=== PATIENT | female | born 1975 | race African-American/Black ===

== ENCOUNTER → 2018-06-04 | Day surgery (SDC) | payer OTHER ==
[2018-06-01 10:40] LABS: BASOPHILS % 0.4 % (0.0-1.0); EOSINOPHILS # (AUTO) 0.1 (0.0-0.4); EOSINOPHILS % 1.1 % (0.0-6.0); HEMATOCRIT 34.7 % (34.2-44.1); HEMOGLOBIN 11.1 g/dL (12.0-16.0); LYMPHOCYTES # (AUTO) 2.1 (1.0-3.2); LYMPHOCYTES % 25.5 % (18.0-39.1); MEAN CORPUSCULAR HEMOGLOBIN 25.6 pg (28-32); MONOCYTES # (AUTO) 0.4 (0.2-0.8); MONOCYTES % 5.3 % (4.4-11.3); NEUTROPHILS # (AUTO) 5.6 (2.1-6.9); NEUTROPHILS % 67.6 % (38.7-80.0); PLATELET COUNT 310 x10e3/uL (140-360); RED BLOOD COUNT 4.34 x10e6/uL (3.6-5.1); RED CELL DISTRIBUTION WIDTH 13.9 % (11.7-14.4)
[~2018-06-04] MED LIST: ACETAMINOPHEN 1000 MG/100 ML IV ONE; ACETAMINOPHEN/CODEINE 300MG - 30MG TAB ONE; BUPIVACAINE 0.25%/EPI 30ML SDV INJ ONE; CALCIUM CARBON500 MG PO; DEXAMETHASONE SOD PHOS INJ 4 MG/ML VIAL ONE; FENTANYL CITRATE/PF 100MCG/2 ML INJ ONE; GLYCOPYRROLATE INJ 1MG/ 5 ML SYR ONE; LIDOCAINE HCL 2% LOCAL INJ 5 ML SDV VIAL INJ ONE; MEPERIDINE HCL INJ 25 MG/ML VIAL ONE; MIDAZOLAM HCL 2 MG/2 ML VIAL ONE; MULTI-VITAMIN1 EACH PO; ONDANSETRON HCL INJ 2MG/ML 2ML 2 MG/ML VIAL ONE; PROPOFOL IV EMULSION 10 MG/ML 20 ML VIAL ONE; SEVOFLURANE INHAL SOLN 250 ML PEN BTL ONE
--- OUTSIDE RECORDS SUMMARY | 2018-06-04 05:23 | XMS REPORT | Clinical Summary ---
Author Author [employer] [facility] [employer] [facility] Address Unknown Phone Unavailable Care Team Providers Care Water Filtration Technician Name Role Phone Yonatan Whitfield DO PCP Allergies Not on File Medications Not on file Active Problems Not on file Encounters Care Team Description Date Type Specialty Srinivasan Mcduffie MD Abnormal mammogram 08/27/2017 Hospital Radiology Encounter Srinivasan Mcduffie MD Abnormal mammogram 08/27/2017 Hospital Radiology Encounter Srinivasan Mcduffie MD Abnormal mammogram (Primary Dx) 08/12/2017 Transcribe Access Orders Srinivasan Mcduffie MD Screening breast examination 08/11/2017 Hospital Radiology Encounter Srinivasan Mcduffie MD Screening breast examination (Primary Dx) 08/08/2017 Transcribe Access Orders after 06/03/2017 Social History Date Tobacco Use Types Packs/Day Years Used Never Assessed Sex Assigned at Date Recorded Not on file Industry Job Start Date Occupation Not on file Not on file Not on file Travel End Travel History Travel Start No recent travel history available. Last Filed Vital Signs Not on file Plan of Treatment Health Maintenance Due Date Last Done Comments CERVICAL CANCER SCREENING 1998 INFLUENZA VACCINE 12/17/2017 Procedures Comments Procedure Name Priority Date/Time Associated Diagnosis US BREAST COMPLETE RIGHT Routine 08/27/2017 Abnormal mammogram 4:22 PM CDT MAMMO BREAST DIAGNOSTIC Routine 08/27/2017 Abnormal mammogram TOMOSYNTHESIS RIGHT 3:20 PM CDT MAMMO BREAST SCREEN Routine 08/11/2017 Screening breast TOMOSYNTHESIS BILATERAL 7:20 AM CDT examination after 06/03/2017 Results * US Breast Complete Right (08/27/2017 4:22 PM CDT) Narrative Performed At PROCEDURE: MAMMO BREAST DIAGNOSTIC TOMOSYNTHESIS RIGHT, US BREAST COMPLETE RIGHT [facility] Right real-time whole breast sonography included all four quadrants and the retroareolar region under close supervision by the radiologist. Computer aided detection with tomosynthesis was utilized for the interpretation. HISTORY:42-year-old female recalled for screening mammography for a focal asymmetry with questionable distortion at the right medial inferior breast at middle depth. The patient is scheduled to have a bilateral mastopexy performed in the next month. COMPARISON: 08/11/2017-04/10/2016 DENSITY: There are scattered areas of fibroglandular density. FINDINGS: MAMMOGRAM: The focal asymmetry associated with possible architectural distortion in the right medial inferior breast at middle depth is not reproduced on today's right ML or right CC full field 2-D and 3-D views. Additionally, right ML and right CC spot compression magnification views in the expected location of this focal asymmetry demonstrates normal fibroglandular tissue. There are a few scattered benign-appearing coarse calcifications in the right breast. ULTRASOUND: Right whole breast sonography demonstrates no suspicious sonographic abnormality. IMPRESSION:No mammographic or sonographic evidence of malignancy in the right breast. RECOMMENDATION: Correlation with physical exam and annual mammography. Results and recommendations were discussed with the patient at the time of the ultrasound exam. BI-RADS 2: BENIGN This facility is accredited by [employer] for Mammography. A negative x-ray report should not delay biopsy if a dominant or clinically suspicious mass is present.Not all cancers are identified by x-ray. [id number] Performing Organization Address City/State/Zipcode Phone Number [facility] [phone] [place] [address] * Mammo Breast Diagnostic Tomosynthesis Right (08/27/2017 3:20 PM CDT) Narrative Performed At PROCEDURE: MAMMO BREAST DIAGNOSTIC TOMOSYNTHESIS RIGHT, US BREAST COMPLETE RIGHT [facility] Right real-time whole breast sonography included all four quadrants and the retroareolar region under close supervision by the radiologist. Computer aided detection with tomosynthesis was utilized for the interpretation. HISTORY:42-year-old female recalled for screening mammography for a focal asymmetry with questionable distortion at the right medial inferior breast at middle depth. The patient is scheduled to have a bilateral mastopexy performed in the next month. COMPARISON: 08/11/2017-04/10/2016 DENSITY: There are scattered areas of fibroglandular density. FINDINGS: MAMMOGRAM: The focal asymmetry associated with possible architectural distortion in the right medial inferior breast at middle depth is not reproduced on today's right ML or right CC full field 2-D and 3-D views. Additionally, right ML and right CC spot compression magnification views in the expected location of this focal asymmetry demonstrates normal fibroglandular tissue. There are a few scattered benign-appearing coarse calcifications in the right breast. ULTRASOUND: Right whole breast sonography demonstrates no suspicious sonographic abnormality. IMPRESSION:No mammographic or sonographic evidence of malignancy in the right breast. RECOMMENDATION: Correlation with physical exam and annual mammography. Results and recommendations were discussed with the patient at the time of the ultrasound exam. BI-RADS 2: BENIGN This facility is accredited by [employer] for Mammography. A negative x-ray report should not delay biopsy if a dominant or clinically suspicious mass is present.Not all cancers are identified by x-ray. [id number] Performing Organization Address [facility] Phone Number [facility] [address] [place] [address] * Mammo Breast Screen Tomosynthesis Bilateral (08/11/2017 7:20 AM CDT) Narrative Performed At PROCEDURE: MAMMO BREAST SCREEN TOMOSYNTHESIS BILATERAL [facility] Computer aided detection was utilized for the interpretation of the digital bilateral screening mammography with tomosynthesis. COMPARISON: 04/10/2016 CLINICAL HISTORY: Screening mammogram.The patient has no current breast complaints. The patient reports a family history of her mother diagnosed with breast cancer at age 72. DENSITY: There are scattered areas of fibroglandular density. There are a few scattered benign-appearing coarse calcifications in the right breast. There is a focal asymmetry with questionable distortion at the right medial inferior breast at middle depth. No significant masses, calcifications, or other findings are seen in the left breast. IMPRESSION: 1. Right breast focal asymmetry with questionable distortion. 2. No mammographic evidence of malignancy in the left breast. RECOMMENDATION: Right diagnostic mammogram (including tomosynthesis views) with ultrasound as needed. BI-RADS 0: INCOMPLETE - Need Additional Imaging Evaluation This facility is accredited by the [employer] for Mammography. A negative x-ray report should not delay biopsy if a dominant or clinically suspicious mass is present.Not all cancers are identified by x-ray. [id number] Performing Organization Address City/State/Zipcode Phone Number [facility] [address] [place] [address] after 06/03/2017 Insurance Payer Benefit Subscriber ID Type Phone Address Plan / Group [facility] UMR xxxxxxxx PPO [facility] THCARE CHOICE NT[facility] Advance Directives Patient has advance care planning documents on file. For more information, angella hill contact: Byron Henao [address] [place] [address]
--- OUTSIDE RECORDS SUMMARY | 2018-06-04 05:23 | XMS REPORT | Continuity of Care Document ---
Author Author [facility] Organization Interface Address Unknown Phone Unavailable Problems Problem Status Onset Date Classification Date Reported Comments Source 98181- MORBID OBESITY Active 12/07/2014 [facility] 05872,REFLUX Active 09/29/2014 [facility] Morbid obesity Active Problem 01/02/2015 [facility] ADMINISTRTVE ENCOUNT NOS Active [facility] Medications Medication Details Route Status Patient Instructions Ordering Provider Order Date Source Lactated Ringers IV 1,000 mL 1,000 mL, Rate: 80 ml/hr, Infuse over: 12.5 hr, Route: IV, Dosing Weight 114.091 kg, Total Volume: 1,000, Priority: Routine, Start date: 12/29/14 11:00:00, Duration: 30 day, Stop date: 01/28/15 10:59:00 No Longer Active 12/29/2014 [facility] tramadol hydrochloride 50 MG Oral Tablet 50 mg=1 tab, PO, Q4H, PRN Pain, X 5 day, # 30 tab, 0 Refill(s) Active 12/29/2014 [facility] tramadol hydrochloride 50 MG Oral Tablet 50 mg, 1 tab, Route: PO, Drug form: TAB, Q4H, Dosing Weight 108.636, kg, PRN Pain Score 1-3, Start date: 12/29/14 8:20:00, Duration: 30 day, Stop date: 01/28/15 8:19:00Notes: Not to exceed 400mg/day. (Same As: Ultram) No Longer Active 12/29/2014 [facility] Enoxaparin 30 mg, 0.3 mL, Route: SUB-Q, Drug form: INJ, [id number], Dosing Weight 114.091, kg, Start date: 12/29/14 5:00:00, Duration: 30 day, Stop date: 01/27/15 17:00:00Notes: (Same as: Lovenox) No Longer Active 12/29/2014 [facility] Ketorolac 30 mg, 1 mL, Route: IVP, Drug form: INJ, Q6H, Dosing Weight 114.091, kg, Start date: 12/28/14 18:00:00, Duration: 6 doses or times, Stop date: 12/30/14 0:00:00Notes: (Same as:Toradol) IV bolus must be given >15 seconds. Give IM administration slowly and deeply into the muscle. Not for use > 4 days MEDICATION WASTE Product Size: 30 mg Product Wasted: ___ mg Active 12/28/2014 [facility] Hydromorphone 15 mg, 30 mL, Route: IV, Initial Loading Dose: 0.4mg, TAILMAN Dose: 0.2 mg, TAILMAN Lockout: 10 minutes, Continuous Basal Rate: 0 mg, 4 Hour Limit (In MG): 6, Drug Form: INJ, Continuous, Start date: 12/28/14 17 :30:00, Duration: 30 day, Stop date: 01/27/15 17:...Notes: (Same as: Dilaudid) conc=0.5 mg/ml Hydromorphone TAILMAN Dose: ;Delay: ;Basal: No Longer Active 12/28/2014 [facility] Hydromorphone 0.2 mg, 0.1 mL, Route: IVP, Drug form: INJ, Q5Min, Dosing Weight 114.091, kg, PRN Pain Score 4-6, Start date: 12/28/14 17:23:00, Duration: 10 doses or times, Stop date: Limited # of timesNotes: (Same as: Dilaudid) Inactive 12/28/2014 [facility] Flumazenil 0.2 mg, 2 mL, Route: IVP, Drug form: INJ, PRN, Dosing Weight 114.091, kg, PRN Benzodiazepine Reversal, Initial dose, Start date: 12/28/14 17:23:00, Duration: 30 day, Stop date: 01/27/15 17:22:00Notes: (Same as: Romazicon) Inactive 12/28/2014 [facility] Promethazine 6.25 mg, 0.25 mL, Route: IVPB, ONCE, Dosing Weight 114.091, kg, PRN Nausea & Vomiting, Start date: 12/28/14 17:23:00Notes: Do not give IV push. (Same as: Phenergan) Inactive 12/28/2014 [facility] Diphenhydramine 12.5 mg, 0.25 mL, Route: IVP, Drug form: INJ, Q6H, Dosing Weight 114.091, kg, PRN Itching, Start date: 12/28/14 17:23:00, Duration: 30 day, Stop date: 01/27/15 17:22:00Notes: (Same as: Benadryl) Inactive 12/28/2014 [facility] Ondansetron 4 mg, 2 mL, Route: IVP, Drug form: INJ, ONCE, Dosing Weight 114.091, kg, PRN Nausea & Vomiting, Start date: 12/28/14 17:23:00Notes: (Same as: Zofran) MEDICATION WASTE Product Size: 4 mg Product Wasted: ___ mg Inactive 12/28/2014 [facility] Naloxone 0.04 mg, 0.1 mL, Route: IVP, Drug form: INJ, Q2MIN, Dosing Weight 114.091, kg, PRN Narcotic Reversal, Start date: 12/28/14 17:23:00, Duration: 8 doses or times, Stop date: Limited # of timesNotes: Same as Narcan Inactive 12/28/2014 [facility] Ephedrine 5 mg, 1 mL, Route: IVP, Drug form: INJ, Q5Min, Dosing Weight 114.091, kg, PRN Low Blood Pressure, Start date: 12/28/14 17:23:00, Duration: 30 day, Stop date: 01/27/15 17:22:00Notes: final concentrati on 5 mg/mL Inactive 12/28/2014 [facility] Labetalol 10 mg, 2 mL, Route: IVP, Drug form: INJ, Q5Min, Dosing Weight 114.091, kg, PRN Elevated BP, Start date: 12/28/14 17:23:00, Duration: 5 doses or times, Stop date: Limited # of times Inactive 12/28/2014 [facility] Metoprolol 1 mg, 1 mL, Route: IVP, Drug form: INJ, Q5Min, Dosing Weight 114.091, kg, PRN Other -See Comment, Start date: 12/28/14 17:23:00, Duration: 5 doses or times, Stop date: Limited # of timesNotes: (Same as: Lopressor) Push over 2 minutes Inactive 12/28/2014 [facility] esmolol 10 mg, 1 mL, Route: IVP, Drug form: INJ, Q5Min, Dosing Weight 114.091, kg, PRN Other -See Comment, Start date: 12/28/14 17:23:00, Duration: 5 doses or times, Stop date: Limited # of timesNotes: (Same as: Brevibloc) Inactive 12/28/2014 [facility] Hydralazine 10 mg, 0.5 mL, Route: IVP, Drug form: INJ, Q20Min, Dosing Weight 114.091, kg, PRN Elevated BP, Start date: 12/28/14 17:23:00, Duration: 2 doses or times, Stop date: Limited # of times Inactive 12/28/2014 [facility] Calcium Chloride 0.0014 MEQ/ML / Potassium Chloride 0.004 MEQ/ML / Sodium Chloride 0.103 MEQ/ML / Sodium Lactate 0.028 MEQ/ML Injectable Solution 1,000 mL, Rate: 125 ml/hr, Infuse over: 8 hr, Route: IV, Dosing Weight 114.091 kg, Total Volume: 1,000, Start date: 12/28/14 17:23:00, Duration: 30 day, Stop date: 01/27/15 17:22:00 Inactive 12/28/2014 [facility] Sodium Chloride 0.9% IV 25 mL, Route: IV, Start date: 12/28/14 17:08:00, Duration: 30 day, Stop date: 01/27/15 17:07:00, PRN Line Flush No Longer Active 12/28/2014 [facility] BD Normal Saline Flush 10 mL, Route: IV, Drug Form: INJ, PRN, PRN Line Flush, Start date: 12/28/14 17:07:00, Duration: 30 day, Stop date: 01/27/15 17:06:00Notes: (Same as: BD Posiflush) No Longer Active 12/28/2014 [facility] Naloxone 0.04 mg, 0.1 mL, Route: IVP, Drug form: INJ, Q2MIN, Dosing Weight 114.091, kg, PRN Narcotic Reversal, Start date: 12/28/14 17:01:00, Duration: 30 day, Stop date: 01/27/15 17:00:00Notes: Same as Narcan No Longer Active 12/28/2014 [facility] Lactated Ringers IV 1,000 mL 1,000 mL, Rate: 80 ml/hr, Infuse over: 12.5 hr, Route: IV, Dosing Weight 114.091 kg, Total Volume: 1,000, Priority: STAT, Start date: 12/28/14 16:58:00, Duration: 30 day, Stop date: 01/27/15 16:57:00 Inactive 12/28/2014 [facility] Promethazine 12.5 mg, 50 mL, Route: IVPB, Drug form: SOLN, Q4H, Dosing Weight 114.091, kg, PRN Nausea & Vomiting, Start date: 12/28/14 16:58:00, Duration: 30 day, Stop date: 01/27/15 16:57:00 No Longer Active 12/28/2014 [facility] Ondansetron 4 mg, 2 mL, Route: IVP, Drug form: INJ, Q12H, Dosing Weight 114.091, kg, PRN Nausea & Vomiting, Start date: 12/28/14 16:58:00, Duration: 30 day, Stop date: 01/27/15 16:57:00Notes: (Same as: Zofran) MEDICATION WASTE Product Size: 4 mg Product Wasted: ___ mg No Longer Active 12/28/2014 [facility] Calcium Chloride 0.0014 MEQ/ML / Potassium Chloride 0.004 MEQ/ML / Sodium Chloride 0.103 MEQ/ML / Sodium Lactate 0.028 MEQ/ML Injectable Solution 1,000 mL, Rate: 125 ml/hr, Infuse over: 8 hr, Route: IV, Dosing Weight 114.091 kg, Total Volume: 1,000, Start date: 12/28/14 16:58:00, Stop date: 12/29/14 10:59:00 No Longer Active 12/28/2014 [facility] ceFAZolin 2 gm, 100 mL, Route: IVPB, Drug form: INJ, ONCALL, Start date: 12/28/14 7:00:00, Duration: 14 hr, Stop date: 12/28/14 20:59:00Notes: Same as: Ancef Inactive 12/28/2014 [facility] Flumazenil 0.2 mg, 2 mL, Route: IVP, Drug form: INJ, PRN, Dosing Weight 114.091, kg, PRN Benzodiazepine Reversal, Initial dose, Start date: 11/04/14 7:18:00, Duration: 30 day, Stop date: 12/04/14 7:17:00Notes: (Same as: Romazicon) Inactive 11/04/2014 [facility] Naloxone 0.04 mg, 0.1 mL, Route: IVP, Drug form: INJ, Q2MIN, Dosing Weight 114.091, kg, PRN Narcotic Reversal, Start date: 11/04/14 7:18:00, Duration: 8 doses or times, Stop date: Limited # of timesNotes: Same as Narcan Inactive 11/04/2014 [facility] Ondansetron 4 mg, 2 mL, Route: IVP, Drug form: INJ, ONCE, Dosing Weight 114.091, kg, PRN Nausea & Vomiting, Start date: 11/04/14 7:18:00Notes: (Same as: Zofran) MEDICATION WASTE Product Size: 4 mg Product Wasted: ___ mg Inactive 11/04/2014 [facility] Allergies, Adverse Reactions, Alerts Substance Category Reaction Severity Reaction type Status Date Reported Comments Source NKFA Assertion Drug allergy Active [facility] Immunizations Immunization Date Given Site Status Last Updated Comments Source Results Order Name Results Value Reference Range Date Interpretation Comments Source CHEM PANEL BUN 7 mg/dL 7 - 22 12/30/2014 [facility] CHEM PANEL CO2 25 meq/L 24 - 32 12/30/2014 [facility] CHEM PANEL AGAP 15.1 meq/L 10.0 - 20.0 12/30/2014 [facility] CHEM PANEL Glucose Lvl 69 mg/dL 70 - 99 12/30/2014 [facility] CHEM PANEL eGFR 109 mL/min/1.73m2 12/30/2014 Result Comment: The eGFR is calculated using the CKD-EPI formula. In most young, healthy individuals the eGFR will be >90 mL/min/1.73m2. The eGFR declines with age. An eGFR of 60-89 may be normal in some populations, particularly the elderly, for whom the CKD-EPI formula has not been extensively validated. Use of the eGFR is not recommended in the following populations: Individuals with unstable creatinine concentrations, including patients and those with serious co-morbid conditions. Patients with extremes in muscle mass or diet. The data above are obtained from the National Kidney Disease Education Program (NKDEP) which additionally recommends that when the eGFR is used in patients with extremes of body mass index for purposes of drug dosing, the eGFR should be multiplied by the estimated BMI. [facility] CHEM PANEL Calcium Lvl 8.3 mg/dL 8.5 - 10.5 12/30/2014 [facility] CHEM PANEL Chloride Lvl 106 meq/L 95 - 109 12/30/2014 [facility] CHEM PANEL Sodium Lvl 142 meq/L 135 - 145 12/30/2014 [facility] CHEM PANEL Potassium Lvl 4.1 meq/L 3.5 - 5.1 12/30/2014 [facility] CHEM PANEL Creatinine Lvl 0.8 mg/dL 0.5 - 1.4 12/30/2014 [facility] HEMATOLOGY Hct 37.2 % 36.0 - 48.0 12/30/2014 [facility] HEMATOLOGY Hgb 12.2 g/dL 12.0 - 16.0 12/30/2014 [facility] HEMATOLOGY MCH 28.6 pg 27.0 - 31.0 12/30/2014 [facility] HEMATOLOGY MCV 87.3 fL 80.0 - 98.0 12/30/2014 [facility] HEMATOLOGY RBC 4.25 M/CMM 4.20 - 5.40 12/30/2014 [facility] HEMATOLOGY RDW 13.9 % 11.5 - 14.5 12/30/2014 [facility] HEMATOLOGY MCHC 32.8 g/dL 32.0 - 36.0 12/30/2014 [facility] HEMATOLOGY MPV 9.7 fL 7.4 - 10.4 12/30/2014 [facility] HEMATOLOGY Platelet 244 K/CMM 133 - 450 12/30/2014 [facility] WBC 9.6 K/CMM 3.7 - 10.4 12/30/2014 [facility] HEMATOLOGY INR 1.11 0.85 - 1.17 12/30/2014 [facility] HEMATOLOGY PTT 30.1 s 22.9 - 35.8 12/30/2014 [facility] HEMATOLOGY PT 14.4 s 12.0 - 14.7 12/30/2014 [facility] HEMATOLOGY Basophils 0.3 % 0.0 - 1.0 12/30/2014 [facility] HEMATOLOGY Segs-Bands # 6.2 K/CMM 1.5 - 8.1 12/30/2014 [facility] HEMATOLOGY Plt Morph Normal (12/30/14 2:55 AM) 12/30/2014 [facility] HEMATOLOGY Segs 64.2 % 45.0 - 75.0 12/30/2014 [facility] HEMATOLOGY Lymphocytes 30.0 % 20.0 - 40.0 12/30/2014 [facility] HEMATOLOGY Monocytes 4.6 % 2.0 - 12.0 12/30/2014 [facility] HEMATOLOGY Lymphocytes # 2.9 K/CMM 1.0 - 5.5 12/30/2014 [facility] HEMATOLOGY Monocytes # 0.4 K/CMM 0.0 - 0.8 12/30/2014 [facility] HEMATOLOGY Eosinophils # 0.1 K/CMM 0.0 - 0.5 12/30/2014 [facility] HEMATOLOGY Eosinophils 0.9 % 0.0 - 4.0 12/30/2014 [facility] HEMATOLOGY RBC Morph Normal (12/30/14 2:55 AM) 12/30/2014 [facility] ELECTROLYTES AGAP 16.4 meq/L 10.0 - 20.0 12/29/2014 [facility] ELECTROLYTES Glucose Lvl 102 mg/dL 70 - 99 12/29/2014 [facility] ELECTROLYTES BUN 8 mg/dL 7 - 22 12/29/2014 [facility] ELECTROLYTES CO2 23 meq/L 24 - 32 12/29/2014 [facility] ELECTROLYTES eGFR 109 mL/min/1.73m2 12/29/2014 Result Comment: The eGFR is calculated using the CKD-EPI formula. In most young, healthy individuals the eGFR will be >90 mL/min/1.73m2. The eGFR declines with age. An eGFR of 60-89 may be normal in some populations, particularly the elderly, for whom the CKD-EPI formula has not been extensively validated. Use of the eGFR is not recommended in the following populations: Individuals with unstable creatinine concentrations, including patients and those with serious co-morbid conditions. Patients with extremes in muscle mass or diet. The data above are obtained from the National Kidney Disease Education Program (NKDEP) which additionally recommends that when the eGFR is used in patients with extremes of body mass index for purposes of drug dosing, the eGFR should be multiplied by the estimated BMI. [facility] ELECTROLYTES Sodium Lvl 141 meq/L 135 - 145 12/29/2014 [facility] ELECTROLYTES Chloride Lvl 107 meq/L 95 - 109 12/29/2014 [facility] ELECTROLYTES Calcium Lvl 8.7 mg/dL 8.5 - 10.5 12/29/2014 [facility] ELECTROLYTES Potassium Lvl 5.4 meq/L 3.5 - 5.1 12/29/2014 [facility] ELECTROLYTES Creatinine Lvl 0.8 mg/dL 0.5 - 1.4 12/29/2014 [facility] HEMATOLOGY Basophils # 0.0 K/CMM 0.0 - 0.2 12/29/2014 [facility] HEMATOLOGY Eosinophils # 0.0 K/CMM 0.0 - 0.5 12/29/2014 [facility] HEMATOLOGY Macrocyte 1+ *ABN* (12/29/14 3:15 AM) None Seen 12/29/2014 [facility] HEMATOLOGY Large Plt Moderate *ABN* (12/29/14 3:15 AM) None Seen 12/29/2014 [facility] HEMATOLOGY Segs 87.8 % 45.0 - 75.0 12/29/2014 [facility] HEMATOLOGY Lymphocytes 8.9 % 20.0 - 40.0 12/29/2014 [facility] HEMATOLOGY Monocytes 3.3 % 2.0 - 12.0 12/29/2014 [facility] HEMATOLOGY Basophils 0.0 % 0.0 - 1.0 12/29/2014 [facility] Segs-Bands # 11.1 K/CMM 1.5 - 8.1 12/29/2014 [facility] HEMATOLOGY Eosinophils 0.0 % 0.0 - 4.0 12/29/2014 [facility] HEMATOLOGY Lymphocytes # 1.1 K/CMM 1.0 - 5.5 12/29/2014 [facility] HEMATOLOGY Monocytes # 0.4 K/CMM 0.0 - 0.8 12/29/2014 [facility] HEMATOLOGY RDW 13.8 % 11.5 - 14.5 12/29/2014 [facility] HEMATOLOGY Platelet 268 K/CMM 133 - 450 12/29/2014 [facility] HEMATOLOGY MPV 9.8 fL 7.4 - 10.4 12/29/2014 [facility] HEMATOLOGY RBC 4.61 M/CMM 4.20 - 5.40 12/29/2014 [facility] HEMATOLOGY WBC 12.6 K/CMM 3.7 - 10.4 12/29/2014 [facility] HEMATOLOGY Hgb 13.1 g/dL 12.0 - 16.0 12/29/2014 [facility] MCH 28.4 pg 27.0 - 31.0 12/29/2014 [facility] MCHC 32.4 g/dL 32.0 - 36.0 12/29/2014 [facility] HEMATOLOGY MCV 87.6 fL 80.0 - 98.0 12/29/2014 [facility] Hct 40.4 % 36.0 - 48.0 12/29/2014 [facility] PT 14.1 s 12.0 - 14.7 12/29/2014 [facility] HEMATOLOGY PTT 29.2 s 22.9 - 35.8 12/29/2014 [facility] HEMATOLOGY INR 1.08 0.85 - 1.17 12/29/2014 [facility] BLOOD BANK RESULTS Antibody Scrn Negative (12/28/14 1:19 PM) 12/28/2014 [facility] BLOOD BANK RESULTS ABO/Rh B POS 12/28/2014 [facility] CHEM PANEL Vitamin D, 25-OH, Total 23 ng/mL 30 - 100 12/14/2014 [facility] ELECTROLYTES AGAP 11.8 meq/L 10.0 - 20.0 12/14/2014 [facility] ELECTROLYTES B/C Ratio 11 6 - 25 12/14/2014 [facility] ELECTROLYTES A/G Ratio 0.8 0.7 - 1.6 12/14/2014 [facility] ELECTROLYTES Globulin 4.2 g/dL 2.0 - 4.0 12/14/2014 [facility] ELECTROLYTES eGFR 128 mL/min/1.73m2 12/14/2014 Result Comment: The eGFR is calculated using the CKD-EPI formula. In most young, healthy individuals the eGFR will be >90 mL/min/1.73m2. The eGFR declines with age. An eGFR of 60-89 may be normal in some populations, particularly the elderly, for whom the CKD-EPI formula has not been extensively validated. Use of the eGFR is not recommended in the following populations: Individuals with unstable creatinine concentrations, including patients and those with serious co-morbid conditions. Patients with extremes in muscle mass or diet. The data above are obtained from the National Kidney Disease Education Program (NKDEP) which additionally recommends that when the eGFR is used in patients with extremes of body mass index for purposes of drug dosing, the eGFR should be multiplied by the estimated BMI. [facility] ELECTROLYTES Chloride Lvl 107 meq/L 95 - 109 12/14/2014 [facility] ELECTROLYTES Potassium Lvl 3.8 meq/L 3.5 - 5.1 12/14/2014 [facility] ELECTROLYTES Calcium Lvl 8.7 mg/dL 8.5 - 10.5 12/14/2014 [facility] ELECTROLYTES Sodium Lvl 140 meq/L 135 - 145 12/14/2014 [facility] ELECTROLYTES Creatinine Lvl 0.7 mg/dL 0.5 - 1.4 12/14/2014 [facility] ELECTROLYTES Glucose Lvl 82 mg/dL 70 - 99 12/14/2014 [facility] ELECTROLYTES CO2 25 meq/L 24 - 32 12/14/2014 [facility] ELECTROLYTES BUN 8 mg/dL 7 - 22 12/14/2014 [facility] ELECTROLYTES Albumin Lvl 3.3 g/dL 3.5 - 5.0 12/14/2014 [facility] ELECTROLYTES Bili Total 0.3 mg/dL 0.2 - 1.3 12/14/2014 [facility] ELECTROLYTES Alk Phos 95 unit/L 39 - 136 12/14/2014 [facility] ELECTROLYTES Total Protein 7.5 g/dL 6.4 - 8.4 12/14/2014 [facility] ELECTROLYTES AST 19 unit/L 0 - 37 12/14/2014 [facility] ELECTROLYTES ALT 28 unit/L 0 - 65 12/14/2014 [facility] HEMATOLOGY MCH 28.4 pg 27.0 - 31.0 12/14/2014 [facility] HEMATOLOGY MCHC 32.7 g/dL 32.0 - 36.0 12/14/2014 [facility] HEMATOLOGY Hgb 13.2 g/dL 12.0 - 16.0 12/14/2014 [facility] HEMATOLOGY MCV 86.7 fL 80.0 - 98.0 12/14/2014 [facility] HEMATOLOGY Hct 40.4 % 36.0 - 48.0 12/14/2014 [facility] WBC 10.6 K/CMM 3.7 - 10.4 12/14/2014 [facility] HEMATOLOGY MPV 8.8 fL 7.4 - 10.4 12/14/2014 [facility] HEMATOLOGY RDW 14.0 % 11.5 - 14.5 12/14/2014 [facility] HEMATOLOGY Platelet 338 K/CMM 133 - 450 12/14/2014 [facility] HEMATOLOGY RBC 4.66 M/CMM 4.20 - 5.40 12/14/2014 [facility] HEMATOLOGY PT 12.7 s 12.0 - 14.7 12/14/2014 [facility] HEMATOLOGY PTT 29.8 s 22.9 - 35.8 12/14/2014 [facility] HEMATOLOGY INR 0.95 0.85 - 1.17 12/14/2014 [facility] HEMATOLOGY Basophils 0.3 % 0.0 - 1.0 12/14/2014 [facility] HEMATOLOGY Lymphocytes 25.9 % 20.0 - 40.0 12/14/2014 [facility] HEMATOLOGY Monocytes 5.2 % 2.0 - 12.0 12/14/2014 [facility] HEMATOLOGY Eosinophils 2.0 % 0.0 - 4.0 12/14/2014 [facility] HEMATOLOGY Segs 66.6 % 45.0 - 75.0 12/14/2014 [facility] HEMATOLOGY Eosinophils # 0.2 K/CMM 0.0 - 0.5 12/14/2014 [facility] HEMATOLOGY Segs-Bands # 7.1 K/CMM 1.5 - 8.1 12/14/2014 [facility] HEMATOLOGY Lymphocytes # 2.7 K/CMM 1.0 - 5.5 12/14/2014 [facility] HEMATOLOGY Monocytes # 0.6 K/CMM 0.0 - 0.8 12/14/2014 [facility] PARATHYROID PROFILE PTH Intact 98.9 pg/mL 11.1 - 79.5 12/14/2014 [facility] SPECIAL CHEMISTRY Hgb A1C 5.4 % <=5.6 % 12/14/2014 [facility] URINE AND STOOL UA Urobilinogen <=1.0 mg/dL 0.1 - 1.0 12/14/2014 [facility] URINE AND STOOL Micro? Not Indicated *NA* (12/14/14 1:03 PM) 12/14/2014 [facility] URINE AND STOOL UA Ketones Negative mg/dL Negative mg/dL 12/14/2014 [facility] URINE AND STOOL UA Bili Negative *NA* (12/14/14 1:03 PM) Negative 12/14/2014 [facility] URINE AND STOOL UA Blood Negative (12/14/14 1:03 PM) Negative 12/14/2014 [facility] URINE AND STOOL UA Nitrite Negative (12/14/14 1:03 PM) Negative 12/14/2014 [facility] URINE AND STOOL UA Glucose Negative mg/dL Negative mg/dL 12/14/2014 [facility] URINE AND STOOL UA pH 5.5 5.0 - 8.0 12/14/2014 [facility] URINE AND STOOL UA Protein Negative mg/dL Negative mg/dL 12/14/2014 [facility] URINE AND STOOL UA Color Yellow *NA* (12/14/14 1:03 PM) Yellow 12/14/2014 [facility] URINE AND STOOL UA Spec Grav 1.017 <=1.030 12/14/2014 [facility] URINE AND STOOL UA Turbidity Clear (12/14/14 1:03 PM) Clear 12/14/2014 [facility] URINE AND STOOL UA Bacteria Occasional /HPF None Seen /HPF 12/14/2014 [facility] URINE AND STOOL UA RBC 1 /HPF 0 - 2 12/14/2014 [facility] URINE AND STOOL UA WBC 4 /HPF 0 - 5 12/14/2014 [facility] URINE AND STOOL UA Leuk Est Negative (12/14/14 1:03 PM) Negative 12/14/2014 [facility] URINE AND STOOL UA Sq Epi Many /LPF Few /LPF 12/14/2014 [facility] Chest 2 views DX Chest 2 views DX Exam: Two-view chest x-ray Reason for Exam: Coughing Comparison Exam: None Discussion: Cardiomediastinal silhouette is within normal limits. Both hemidiaphragms well visualized. No pulmonary edema or pleural effusions. No focal lung consolidations. Trachea is midline. No acute bony abnormalities. Impression: 1. No acute cardiopulmonary abnormalities. 12/14/2014 - - Read by: Ruben Childs MD Dictated Date/time: 12/14/14 16:00 Electronically Signed by: Ruben Childs MD 12/14/14 16:00 FINAL REPORT [facility] Vital Signs Vital Sign Value Date Comments Source Respitory Rate 20 12/30/2014 [facility] Systolic (mm Hg) 113 12/30/2014 [facility] Diastolic (mm Hg) 77 12/30/2014 [facility] Temperature Oral (F) 98.5 F 12/30/2014 [facility] Heart Rate 78 12/30/2014 [facility] Respitory Rate 18 12/30/2014 [facility] Systolic (mm Hg) 109 12/30/2014 [facility] Diastolic (mm Hg) 71 12/30/2014 [facility] Heart Rate 62 12/30/2014 [facility] Respitory Rate 18 12/30/2014 [facility] Temperature Oral (F) 98.0 F 12/30/2014 [facility] Heart Rate 76 12/29/2014 [facility] Temperature Oral (F) 98.2 F 12/29/2014 [facility] Systolic (mm Hg) 102 12/29/2014 [facility] Diastolic (mm Hg) 61 12/29/2014 [facility] Height 154.94 cm 12/29/2014 [facility] Weight 108.636 12/29/2014 [facility] BMI Calculated 45.25 12/29/2014 [facility] Weight 114.091 12/14/2014 [facility] BMI Calculated 47.53 12/14/2014 [facility] Height 154.94 cm 12/14/2014 [facility] Weight 114.091 11/04/2014 [facility] BMI Calculated 47.53 11/04/2014 [facility] Height 154.94 cm 11/04/2014 [facility] Encounters Location Location Details Encounter Type Encounter Number Reason For Visit Attending Provider ADM Date DC Date Status Source [facility] Bedded Outpatient [id number] Jonathon Luz 11/04/2014 11/04/2014 [facility] Inpatient [id number] Jonathon Luz 12/28/2014 12/30/2014 [facility] Procedures Procedure Code Date Perfomer Comments Source Gastric bypass operation [id number] 12/28/2014 [facility] Ablation<sup>1</sup> [id number] endometrial [facility] TL - Tubal ligation [id number] [facility]
--- OUTSIDE RECORDS SUMMARY | 2018-06-04 05:24 | XMS REPORT | Summary of Care ---
Author Author [facility] Organization [facility] Address Unknown Phone Unavailable Encounter [facility] Rupinder(JHOAN) [id number] Date(s): 12/28/14 - 12/30/14 [id number] [place] [address]- Discharge Disposition: Home Attending Physician: Jonathon Luz MD Admitting Physician: Jonathon Luz MD Referring Physician: Jonathon Luz MD Vital Signs 1 2 3 Most recent to oldest [Reference Range]: 154.94 cm (12/28/14 9:25 PM) 154.94 cm (12/14/14 12:32 PM) Height 1 2 3 Most recent to oldest [Reference Range]: 98.5 DegF (12/30/14 8:00 AM) 98.0 DegF (12/30/14 4:00 AM) 98.2 DegF (12/29/14 12:00 AM) Temperature Oral [96.4-99.1 DegF] 1 2 3 Most recent to oldest [Reference Range]: 113/77 mmHg (12/30/14 8:00 AM) 109/71 mmHg (12/30/14 4:00 AM) 102/61 mmHg (12/29/14 12:00 AM) Blood Pressure [90-140/60-90 mmHg] 1 2 3 Most recent to oldest [Reference Range]: 20 BRMIN (12/30/14 8:45 AM) 18 BRMIN (12/30/14 8:00 AM) 18 BRMIN (12/30/14 4:00 AM) Respiratory Rate [14-20 BRMIN] 1 2 3 Most recent to oldest [Reference Range]: 78 bpm (12/30/14 8:00 AM) 62 bpm (12/30/14 4:00 AM) 76 bpm (12/29/14 12:00 AM) Peripheral Pulse Rate [60-100 bpm] 1 2 3 Most recent to oldest [Reference Range]: 108.636 kg (12/28/14 9:25 PM) 114.091 kg (12/14/14 12:32 PM) Weight 1 2 3 Most recent to oldest [Reference Range]: 45.25 m2 (12/28/14 9:25 PM) 47.53 m2 (12/14/14 12:32 PM) Body Mass Index Problem List Condition Effective Dates Status Health Status Informant Morbid Active obesity(Confirmed) Allergies, Adverse Reactions, Alerts Substance Reaction Severity Status NKDA Active NKFA Active Medications BD Normal Saline Flush 10 mL, Route: IV, Drug Form: INJ, PRN, PRN Line Flush, Start date: 12/28/14 17:0 7:00, Duration: 30 day, Stop date: 01/27/15 17:06:00 Notes: (Same as: BD Posiflush) Start Date: 12/28/14 Stop Date: 12/30/14 Status: Discontinued BD Normal Saline Flush 5 mL, Route: IV, Drug Form: INJ, PRN, PRN Line Flush, Start date: 12/28/14 17:07 :00, Duration: 30 day, Stop date: 01/27/15 17:06:00 Notes: (Same as: BD Posiflush) Start Date: 12/28/14 Stop Date: 12/30/14 Status: Discontinued ceFAZolin 2 gm, 100 mL, Route: IVPB, Drug form: INJ, ONCALL, Start date: 12/28/14 7:00:00, Duration: 14 hr, Stop date: 12/28/14 20:59:00 Notes: Same as: Ancef Start Date: 12/28/14 Stop Date: 12/28/14 Status: Completed diphenhydrAMINE 12.5 mg, 0.25 mL, Route: IVP, Drug form: INJ, Q6H, Dosing Weight 114.091, kg, NC N Itching, Start date: 12/28/14 17:23:00, Duration: 30 day, Stop date: 01/27/15 17:22:00 Notes: (Same as: Benadryl) Start Date: 12/28/14 Stop Date: 12/28/14 Status: Discontinued enoxaparin 30 mg, 0.3 mL, Route: SUB-Q, Drug form: INJ, [id number], Dosing Weight 114.091, kg , Start date: 12/29/14 5:00:00, Duration: 30 day, Stop date: 01/27/15 17:00:00 Notes: (Same as: Lovenox) Start Date: 12/29/14 Stop Date: 12/30/14 Status: Discontinued ePHEDrine 5 mg, 1 mL, Route: IVP, Drug form: INJ, Q5Min, Dosing Weight 114.091, kg, PRN Lo w Blood Pressure, Start date: 12/28/14 17:23:00, Duration: 30 day, Stop date: 17:22:00 Notes: final concentration 5 mg/mL Start Date: 12/28/14 Stop Date: 12/28/14 Status: Discontinued esmolol IV Push 10 mg, 1 mL, Route: IVP, Drug form: INJ, Q5Min, Dosing Weight 114.091, kg, PRN O ther -See Comment, Start date: 12/28/14 17:23:00, Duration: 5 doses or times, St op date: Limited # of times Notes: (Same as: Brevibloc) Start Date: 12/28/14 Stop Date: 12/28/14 Status: Discontinued flumazenil 0.2 mg, 2 mL, Route: IVP, Drug form: INJ, PRN, Dosing Weight 114.091, kg, PRN Be nzodiazepine Reversal, Initial dose, Start date: 12/28/14 17:23:00, Duration: 30 day, Stop date: 01/27/15 17:22:00 Notes: (Same as: Romazicon) Start Date: 12/28/14 Stop Date: 12/28/14 Status: Discontinued hydrALAZINE 10 mg, 0.5 mL, Route: IVP, Drug form: INJ, Q20Min, Dosing Weight 114.091, kg, NC N Elevated BP, Start date: 12/28/14 17:23:00, Duration: 2 doses or times, Stop d ate: Limited # of times Start Date: 12/28/14 Stop Date: 12/28/14 Status: Discontinued hydromorphone 0.2 mg, 0.1 mL, Route: IVP, Drug form: INJ, Q5Min, Dosing Weight 114.091, kg, NC N Pain Score 4-6, Start date: 12/28/14 17:23:00, Duration: 10 doses or times, St op date: Limited # of times Notes: (Same as: Dilaudid) Start Date: 12/28/14 Stop Date: 12/28/14 Status: Discontinued hydromorphone 0.5 mg, 0.25 mL, Route: IVP, Drug form: INJ, Q5Min, Dosing Weight 114.091, kg, P RN Pain Score 7-10, Start date: 12/28/14 17:23:00, Duration: 8 doses or times, S top date: Limited # of times Notes: (Same as: Dilaudid) Start Date: 12/28/14 Stop Date: 12/28/14 Status: Discontinued HYDROmorphone 0.5mg/mL VINER OPERATOR (15mg/30 mL) 15 mg 15 mg, 30 mL, Route: IV, Initial Loading Dose: 0.4mg, VINER OPERATOR Dose: 0.2 mg, VINER OPERATOR Lock out: 10 minutes, Continuous Basal Rate: 0 mg, 4 Hour Limit (In MG): 6, Drug Form : INJ, Continuous, Start date: 12/28/14 17:30:00, Duration: 30 day, Stop date: 0 01/27/15 17:... Notes: (Same as: Dilaudid) conc=0.5 mg/mlHydromorphone VINER OPERATOR Dose: ;Delay: ;Basal: Start Date: 12/28/14 Stop Date: 12/29/14 Status: Discontinued ketOROLAC 30 mg, 1 mL, Route: IVP, Drug form: INJ, Q6H, Dosing Weight 114.091, kg, Start d ate: 12/28/14 18:00:00, Duration: 6 doses or times, Stop date: 12/30/14 0:00:00 Notes: (Same as:Toradol) IV bolus must be given >15 seconds. Give IM administration slowly and deeply into the muscle.Not for use > 4 days MEDICATION WASTE Product Size: 30 mgProduct Wasted: ___ mg Start Date: 12/28/14 Stop Date: 12/30/14 Status: Pending Complete labetalol 10 mg, 2 mL, Route: IVP, Drug form: INJ, Q5Min, Dosing Weight 114.091, kg, PRN E levated BP, Start date: 12/28/14 17:23:00, Duration: 5 doses or times, Stop date : Limited # of times Start Date: 12/28/14 Stop Date: 12/28/14 Status: Discontinued Lactated Ringers Injection IV 1,000 mL 1,000 mL, Rate: 125 ml/hr, Infuse over: 8 hr, Route: IV, Dosing Weight 114.091 k g, Total Volume: 1,000, Start date: 12/28/14 17:23:00, Duration: 30 day, Stop da te: 01/27/15 17:22:00 Start Date: 12/28/14 Stop Date: 12/28/14 Status: Discontinued Lactated Ringers Injection IV 1,000 mL 1,000 mL, Rate: 125 ml/hr, Infuse over: 8 hr, Route: IV, Dosing Weight 114.091 k g, Total Volume: 1,000, Start date: 12/28/14 16:58:00, Stop date: 12/29/14 10:59 :00 Start Date: 12/28/14 Stop Date: 12/29/14 Status: Discontinued Lactated Ringers IV 1,000 mL 1,000 mL, Rate: 80 ml/hr, Infuse over: 12.5 hr, Route: IV, Dosing Weight 114.091 kg, Total Volume: 1,000, Priority: STAT, Start date: 12/28/14 16:58:00, Duratio n: 30 day, Stop date: 01/27/15 16:57:00 Start Date: 12/28/14 Stop Date: 12/28/14 Status: Deleted Lactated Ringers IV 1,000 mL 1,000 mL, Rate: 80 ml/hr, Infuse over: 12.5 hr, Route: IV, Dosing Weight 114.091 kg, Total Volume: 1,000, Priority: Routine, Start date: 12/29/14 11:00:00, Dura tion: 30 day, Stop date: 01/28/15 10:59:00 Start Date: 12/29/14 Stop Date: 12/30/14 Status: Discontinued metoprolol 1 mg, 1 mL, Route: IVP, Drug form: INJ, Q5Min, Dosing Weight 114.091, kg, PRN Ot her -See Comment, Start date: 12/28/14 17:23:00, Duration: 5 doses or times, Sto p date: Limited # of times Notes: (Same as: Lopressor)Push over 2 minutes Start Date: 12/28/14 Stop Date: 12/28/14 Status: Discontinued naloxone 0.04 mg, 0.1 mL, Route: IVP, Drug form: INJ, Q2MIN, Dosing Weight 114.091, kg, P RN Narcotic Reversal, Start date: 12/28/14 17:23:00, Duration: 8 doses or times, Stop date: Limited # of times Notes: Same as Narcan Start Date: 12/28/14 Stop Date: 12/28/14 Status: Discontinued naloxone 0.04 mg, 0.1 mL, Route: IVP, Drug form: INJ, Q2MIN, Dosing Weight 114.091, kg, P RN Narcotic Reversal, Start date: 12/28/14 17:01:00, Duration: 30 day, Stop date : 01/27/15 17:00:00 Notes: Same as Narcan Start Date: 12/28/14 Stop Date: 12/29/14 Status: Discontinued ondansetron 4 mg, 2 mL, Route: IVP, Drug form: INJ, ONCE, Dosing Weight 114.091, kg, PRN [place] sea & Vomiting, Start date: 12/28/14 17:23:00 Notes: (Same as: Aniya) MEDICATION WASTE Product Size: 4 mgProduct Was nicholas: ___ mg Start Date: 12/28/14 Stop Date: 12/28/14 Status: Discontinued ondansetron 4 mg, 2 mL, Route: IVP, Drug form: INJ, Q12H, Dosing Weight 114.091, kg, PRN [place] sea & Vomiting, Start date: 12/28/14 16:58:00, Duration: 30 day, Stop date: 01/27/15 16:57:00 Notes: (Same as: Aniya) MEDICATION WASTE Product Size: 4 mgProduct Was nicholas: ___ mg Start Date: 12/28/14 Stop Date: 12/30/14 Status: Discontinued promethazine 12.5 mg, 50 mL, Route: IVPB, Drug form: SOLN, Q4H, Dosing Weight 114.091, kg, NC N Nausea & Vomiting, Start date: 12/28/14 16:58:00, Duration: 30 day, Stop date: 01/27/15 16:57:00 Start Date: 12/28/14 Stop Date: 12/30/14 Status: Discontinued promethazine + Sodium Chloride 0.9% IV 50 mL 6.25 mg, 0.25 mL, Route: IVPB, ONCE, Dosing Weight 114.091, kg, PRN Nausea & Vomiting, Start date: 12/28/14 17:23:00 Notes: Do not give IV push. (Same as: Phenergan) Start Date: 12/28/14 Stop Date: 12/28/14 Status: Discontinued Sodium Chloride 0.9% IV 25 mL, Route: IV, Start date: 12/28/14 17:08:00, Duration: 30 day, Stop date: 17:07:00, PRN Line Flush Start Date: 12/28/14 Stop Date: 12/30/14 Status: Discontinued tramadol 50 mg oral tablet 50 mg=1 tab, PO, Q4H, PRN Pain, X 5 day, # 30 tab, 0 Refill(s) Start Date: 12/29/14 Stop Date: 01/03/15 Status: Ordered tramadol 50 mg oral tablet 50 mg, 1 tab, Route: PO, Drug form: TAB, Q4H, Dosing Weight 108.636, kg, PRN Saira n Score 1-3, Start date: 12/29/14 8:20:00, Duration: 30 day, Stop date: 01/28/15 8:19:00 Notes: Not to exceed 400mg/day. (Same As: Ultram) Start Date: 12/29/14 Stop Date: 12/30/14 Status: Discontinued Results BLOOD BANK RESULTS 1 2 3 Most recent to oldest [Reference Range]: B POS *Unknown* (12/28/14 1:19 PM) ABO/Rh Negative (12/28/14 1:19 PM) Antibody Scrn ELECTROLYTES 1 2 3 Most recent to oldest [Reference Range]: 142 mEq/L (12/30/14 2:55 AM) 141 mEq/L (12/29/14 3:15 AM) 140 mEq/L (12/14/14 1:03 PM) Sodium Lvl [135-145 mEq/L] 4.1 mEq/L (12/30/14 2:55 AM) 5.4 mEq/L *HI* (12/29/14 3:15 AM) 3.8 mEq/L (12/14/14 1:03 PM) Potassium Lvl [3.5-5.1 mEq/L] 106 mEq/L (12/30/14 2:55 AM) 107 mEq/L (12/29/14 3:15 AM) 107 mEq/L (12/14/14 1:03 PM) Chloride Lvl [95-109 mEq/L] 25 mEq/L (12/30/14 2:55 AM) 23 mEq/L *LOW* (12/29/14 3:15 AM) 25 mEq/L (12/14/14 1:03 PM) CO2 [24-32 mEq/L] 15.1 mEq/L (12/30/14 2:55 AM) 16.4 mEq/L (12/29/14 3:15 AM) 11.8 mEq/L (12/14/14 1:03 PM) AGAP [10.0-20.0 mEq/L] CHEM PANEL 1 2 3 Most recent to oldest [Reference Range]: 0.8 mg/dL (12/30/14 2:55 AM) 0.8 mg/dL (12/29/14 3:15 AM) 0.7 mg/dL (12/14/14 1:03 PM) Creatinine Lvl [0.5-1.4 mg/dL] 109 mL/min/1.73m2 1 *NA* (12/30/14 2:55 AM) 109 mL/min/1.73m2 2 *NA* (12/29/14 3:15 AM) 128 mL/min/1.73m2 3 *NA* (12/14/14 1:03 PM) eGFR 7 mg/dL (12/30/14 2:55 AM) 8 mg/dL (12/29/14 3:15 AM) 8 mg/dL (12/14/14 1:03 PM) BUN [7-22 mg/dL] 11 (12/14/14 1:03 PM) B/C Ratio [6-25] 69 mg/dL *LOW* (12/30/14 2:55 AM) 102 mg/dL *HI* (12/29/14 3:15 AM) 82 mg/dL (12/14/14 1:03 PM) Glucose Lvl [70-99 mg/dL] 7.5 g/dL (12/14/14 1:03 PM) Total Protein [6.4-8.4 g/dL] 3.3 g/dL *LOW* (12/14/14 1:03 PM) Albumin Lvl [3.5-5.0 g/dL] 4.2 g/dL *HI* (12/14/14 1:03 PM) Globulin [2.0-4.0 g/dL] 0.8 (12/14/14 1:03 PM) A/G Ratio [0.7-1.6] 8.3 mg/dL *LOW* (12/30/14 2:55 AM) 8.7 mg/dL (12/29/14 3:15 AM) 8.7 mg/dL (12/14/14 1:03 PM) Calcium Lvl [8.5-10.5 mg/dL] 28 unit/L (12/14/14 1:03 PM) ALT [0-65 unit/L] 19 unit/L (12/14/14 1:03 PM) AST [0-37 unit/L] 95 unit/L (12/14/14 1:03 PM) Alk Phos [39-136 unit/L] 0.3 mg/dL (12/14/14 1:03 PM) Bili Total [0.2-1.3 mg/dL] 23 ng/mL *LOW* (12/14/14 1:03 PM) Vitamin D, 25-OH, Total [30-100 ng/mL] 1Result Comment: The eGFR is calculated using the [...] from the National Kidney Disease Education Program ( NKDEP) which additionally recommends that when the eGFR is used in patients with extremes of body mass index for purposes of drug dosing, the eGFR should be mul tiplied by the estimated BMI. 2Result Comment: The eGFR is calculated using the [...] from the National Kid[employer] Disease Education Program ( NKDEP) which additionally recommends that when the eGFR is used in patients with extremes of body mass index for purposes of drug dosing, the eGFR should be mul tiplied by the estimated BMI. 3Result Comment: The eGFR is calculated using the [...] from the National Kid[employer] Disease Education Program ( NKDEP) which additionally recommends that when the eGFR is used in patients with extremes of body mass index for purposes of drug dosing, the eGFR should be mul tiplied by the estimated BMI. SPECIAL CHEMISTRY 1 2 3 Most recent to oldest [Reference Range]: 5.4 % (12/14/14 1:03 PM) Hgb A1C [<=5.6 %] PARATHYROID PROFILE 1 2 3 Most recent to oldest [Reference Range]: 98.9 pg/mL *HI* (12/14/14 1:03 PM) PTH Intact [11.1-79.5 pg/mL] URINE AND STOOL 1 2 3 Most recent to oldest [Reference Range]: Clear (12/14/14 1:03 PM) UA Turbidity [Clear] Yellow *NA* (12/14/14 1:03 PM) UA Color [Yellow] 5.5 (12/14/14 1:03 PM) UA pH [5.0-8.0] 1.017 (12/14/14 1:03 PM) UA Spec Grav [<=1.030] Negative mg/dL *NA* (12/14/14 1:03 PM) UA Glucose [Negative mg/dL] Negative (12/14/14 1:03 PM) UA Blood [Negative] Negative mg/dL *NA* (12/14/14 1:03 PM) UA Ketones [Negative mg/dL] Negative mg/dL (12/14/14 1:03 PM) UA Protein [Negative mg/dL] <=1.0 mg/dL *NA* (12/14/14 1:03 PM) UA Urobilinogen [0.1-1.0 mg/dL] Negative *NA* (12/14/14 1:03 PM) UA Bili [Negative] Negative (12/14/14 1:03 PM) UA Leuk Est [Negative] Negative (12/14/14 1:03 PM) UA Nitrite [Negative] 4 /HPF (12/14/14 1:03 PM) UA WBC [0-5 /HPF] 1 /HPF (12/14/14 1:03 PM) UA RBC [0-2 /HPF] Occasional /HPF *NA* (12/14/14 1:03 PM) UA Bacteria [None Seen /HPF] Many /LPF *ABN* (12/14/14 1:03 PM) UA Sq Epi [Few /LPF] Not Indicated *NA* (12/14/14 1:03 PM) Micro? HEMATOLOGY 1 2 3 Most recent to oldest [Reference Range]: 9.6 K/CMM (12/30/14 2:55 AM) 12.6 K/CMM *HI* (12/29/14 3:15 AM) 10.6 K/CMM *HI* (12/14/14 1:03 PM) WBC [3.7-10.4 K/CMM] 4.25 M/CMM (12/30/14 2:55 AM) 4.61 M/CMM (12/29/14 3:15 AM) 4.66 M/CMM (12/14/14 1:03 PM) RBC [4.20-5.40 M/CMM] 12.2 g/dL (12/30/14 2:55 AM) 13.1 g/dL (12/29/14 3:15 AM) 13.2 g/dL (12/14/14 1:03 PM) Hgb [12.0-16.0 g/dL] 37.2 % (12/30/14 2:55 AM) 40.4 % (12/29/14 3:15 AM) 40.4 % (12/14/14 1:03 PM) Hct [36.0-48.0 %] 87.3 fL (12/30/14 2:55 AM) 87.6 fL (12/29/14 3:15 AM) 86.7 fL (12/14/14 1:03 PM) MCV [80.0-98.0 fL] 28.6 pg (12/30/14 2:55 AM) 28.4 pg (12/29/14 3:15 AM) 28.4 pg (12/14/14 1:03 PM) MCH [27.0-31.0 pg] 32.8 g/dL (12/30/14 2:55 AM) 32.4 g/dL (12/29/14 3:15 AM) 32.7 g/dL (12/14/14 1:03 PM) MCHC [32.0-36.0 g/dL] 13.9 % (12/30/14 2:55 AM) 13.8 % (12/29/14 3:15 AM) 14.0 % (12/14/14 1:03 PM) RDW [11.5-14.5 %] 244 K/CMM (12/30/14 2:55 AM) 268 K/CMM (12/29/14 3:15 AM) 338 K/CMM (12/14/14 1:03 PM) Platelet [133-450 K/CMM] 9.7 fL (12/30/14 2:55 AM) 9.8 fL (12/29/14 3:15 AM) 8.8 fL (12/14/14 1:03 PM) MPV [7.4-10.4 fL] 64.2 % (12/30/14 2:55 AM) 87.8 % *HI* (12/29/14 3:15 AM) 66.6 % (12/14/14 1:03 PM) Segs [45.0-75.0 %] 30.0 % (12/30/14 2:55 AM) 8.9 % *LOW* (12/29/14 3:15 AM) 25.9 % (12/14/14 1:03 PM) Lymphocytes [20.0-40.0 %] 4.6 % (12/30/14 2:55 AM) 3.3 % (12/29/14 3:15 AM) 5.2 % (12/14/14 1:03 PM) Monocytes [2.0-12.0 %] 0.9 % (12/30/14 2:55 AM) 0.0 % (12/29/14 3:15 AM) 2.0 % (12/14/14 1:03 PM) Eosinophils [0.0-4.0 %] 0.3 % (12/30/14 2:55 AM) 0.0 % (12/29/14 3:15 AM) 0.3 % (12/14/14 1:03 PM) Basophils [0.0-1.0 %] 6.2 K/CMM (12/30/14 2:55 AM) 11.1 K/CMM *HI* (12/29/14 3:15 AM) 7.1 K/CMM (12/14/14 1:03 PM) Segs-Bands # [1.5-8.1 K/CMM] 2.9 K/CMM (12/30/14 2:55 AM) 1.1 K/CMM (12/29/14 3:15 AM) 2.7 K/CMM (12/14/14 1:03 PM) Lymphocytes # [1.0-5.5 K/CMM] 0.4 K/CMM (12/30/14 2:55 AM) 0.4 K/CMM (12/29/14 3:15 AM) 0.6 K/CMM (12/14/14 1:03 PM) Monocytes # [0.0-0.8 K/CMM] 0.1 K/CMM (12/30/14 2:55 AM) 0.0 K/CMM (12/29/14 3:15 AM) 0.2 K/CMM (12/14/14 1:03 PM) Eosinophils # [0.0-0.5 K/CMM] 0.0 K/CMM (12/29/14 3:15 AM) Basophils # [0.0-0.2 K/CMM] Normal (12/30/14 2:55 AM) RBC Morph 1+ *ABN* (12/29/14 3:15 AM) Macrocyte [None Seen] Normal (12/30/14 2:55 AM) Plt Morph Moderate *ABN* (12/29/14 3:15 AM) Large Plt [None Seen] 14.4 seconds (12/30/14 2:55 AM) 14.1 seconds (12/29/14 3:15 AM) 12.7 seconds (12/14/14 1:03 PM) PT [12.0-14.7 seconds] 1.11 (12/30/14 2:55 AM) 1.08 (12/29/14 3:15 AM) 0.95 (12/14/14 1:03 PM) INR [0.85-1.17] 30.1 seconds (12/30/14 2:55 AM) 29.2 seconds (12/29/14 3:15 AM) 29.8 seconds (12/14/14 1:03 PM) PTT [22.9-35.8 seconds] Immunizations No data available for this section Procedures Procedure Date Related Diagnosis Body Site Gastric bypass operation 12/28/14 Ablation1 TL - Tubal ligation 1endometrial Social History Social History Type Response Smoking Status Never smoker; Exposure to Tobacco Smoke None; Cigarette Smoking Last 365 Days No; Reg Smoking Cessation Counseling No Assessment and Plan Extracted from: Title: Clinical Document Author: Jonathon Luz MD Date: 12/30/14 Progress Note - Daily [facility] Completed: Dec, 11:16 by Jonathon Luz MD RM: [phone] [id number], VANESSA [id number], [id number] (: 1975) F Attending: Jonathon Luz: Service: General Surgery Service Reason for Admission: 74486- MORBID OBESITY Working DRG: O.R. procedures for obesity w/o CC/FPC Code status: Full Code [Ordered]Current diet: Isolation: None Documented Allergies: NKFA, NKDA SUBJECTIVE/ OBJECTIVE No events. Tolerating diet. Pain controlled 24hr Labs 12/30 0255 Glucose Lvl69 L BUN7 Creatinine Lvl0.8 Sodium Wxs470 Potassium Lvl4.1 Chloride Hqx931 CO225 AGAP15.1 Calcium Lvl8.3 L [id number] PT14.4 INR1.11 PTT30.1 WBC9.6 RBC4.25 Hgb12.2 Hct37.2 MCV87.3 MCH28.6 MCHC32.8 RDW13.9 [id number] MPV9.7 Segs64.2 Monocytes4.6 Efsadxguuid79.0 Eosinophils0.9 Basophils0.3 Segs-Bands #6.2 Lymphocytes #2.9 Monocytes #0.4 Eosinophils #0.1 RBC MorphNormal Plt MorphNormal Matt still necessary (Yes/No): Line still necessary (Yes/No): VitalsTmp(F)[id number] 12/30 08:[id number]--- 12/30 04:[id number]--- 12/29 20:42 94--- 12/29 07:24 97--- 12/29 00:0098.465854/[id number] 3.0L/m 24 Hr Tmax: 98.5F (36.94c) at 12/30 08:00Vital Signs are the last 5 in the past 48 hours. DateWt(kg)Wt(lb)Ht(cm)Ht(in)Method .64 [id number] 61.00Estimated 12/14 (initial)114.09 251.00Measured 54.94 61.00Stated I&ORecordInOutBal 12/1423hr Tot 0 0 0 1324hr Tot 963 400 563 Medications (8) Active Scheduled Meds (1): 12/29/14 enoxaparin 30 mg SUB-Q [id number] Unscheduled Meds: None PRN Meds (6): 12/28/14 Sodium Chloride 0.9% IV 25 mL IV PRN 12/28/14 ondansetron 4 mg IVP Q12H 12/28/14 promethazine 12.5 mg IVPB Q4H 300 ml/hr 12/28/14 sodium chloride (BD Normal Saline Flush) 5 mL IV PRN 12/28/14 sodium chloride (BD Normal Saline Flush) 10 mL IV PRN 12/29/14 tramadol (tramadol 50 mg oral tablet) 50 mg PO Q4H One Time Meds: None Continuous Infusions (1): 12/29/14 Lactated Ringers Injection IV 1,000 mL (Lactated Ringers IV 1,000 mL) 1,000 mL 80 ml/hr ASSESSMENT & EXAM NAD RRR Soft, ND, appr TTP, wounds c/d/i PLAN & TREATMENT S/p lap RYGB. cont protocol Ready for Discharge (Yes/No)? TEACHING ATTESTATION
--- OUTSIDE RECORDS SUMMARY | 2018-06-04 05:24 | XMS REPORT | Summary of Care ---
Author Organization Unknown Address Unknown Phone Unavailable Encounter BENNY Bucio(JHOAN) [id number] Date(s): 11/04/14 - 11/04/[address] [address]- Discharge Disposition: Home Physician Attending: Jonathon Luz MD Physician Admitting: Jonathon Luz MD Physician_Referring: Jonathon Luz MD Vital Signs Most recent to 1 oldest [Reference Range]: Height 154.94 cm (11/04/14 7:16 AM) Weight 114.091 kg (11/04/14 7:16 AM) Body Mass Index 47.53 m2 (11/04/14 7:16 AM) Problem List No data available for this section Allergies, Adverse Reactions, Alerts Substance Reaction Severity Status NKDA Active Medications flumazenil 0.2 mg, 2 mL, Route: IVP, Drug form: INJ, PRN, Dosing Weight 114.091, kg, PRN Be nzodiazepine Reversal, Initial dose, Start date: 11/04/14 7:18:00, Duration: 30 day, Stop date: 12/04/14 7:17:00 Notes: (Same as: Romazicon) Start Date: 11/04/14 Stop Date: 11/04/14 Status: Discontinued naloxone 0.04 mg, 0.1 mL, Route: IVP, Drug form: INJ, Q2MIN, Dosing Weight 114.091, kg, P RN Narcotic Reversal, Start date: 11/04/14 7:18:00, Duration: 8 doses or times, Stop date: Limited # of times Notes: Same as Narcan Start Date: 11/04/14 Stop Date: 11/04/14 Status: Discontinued ondansetron 4 mg, 2 mL, Route: IVP, Drug form: INJ, ONCE, Dosing Weight 114.091, kg, PRN [place] & Vomiting, Start date: 11/04/14 7:18:00 Notes: (Same as: Aniya) MEDICATION WASTE Product Size: 4 mgProduct Was nicholas: ___ mg Start Date: 11/04/14 Stop Date: 11/04/14 Status: Discontinued Results No data available for this section Immunizations No data available for this section Procedures No data available for this section Social History No data available for this section Assessment and Plan No data available for this section
[2018-06-04 10:40] VITALS: BP 102/60
--- NOTE | 2018-06-19 18:16 | Operative Report ---
DATE OF PROCEDURE: June 05, 2018 BOX ATTACHER: None. PREOPERATIVE DIAGNOSES 1. Bartholin's gland cyst. 2. Left Mandan's gland cyst. POSTOPERATIVE DIAGNOSES 1. Left Bartholin's gland cyst. 2. Left labial cyst. PROCEDURES PERFORMED 1. Marsupialization of Bartholin's gland cyst. 2. Removal of left labial cyst. ANESTHESIA: General. ESTIMATED BLOOD LOSS: Minimal. COMPLICATIONS: None. FINDINGS: The patient had an approximately 5 cm right Bartholin's gland cyst with no evidence of abscess or cellulitis. She also had a left labial cyst on the labia minora at the superior aspect of the labia. SPECIMENS: Included cyst chin. INDICATIONS: The patient is a 43-year-old, 2, para 2 with discomfort from multiple vaginal cysts. PROCEDURE NOTE: Prior to the operation, the risks, benefits, and alternatives were discussed and the consent was reconciled. The patient was brought to the operating room and properly identified. She was placed on the table and general anesthesia was induced by the anesthesiologist. The patient was then repositioned to the dorsal lithotomy position in candy cane stirrups and prepped and draped in the typical sterile fashion and a time out was performed. A solution of 0.25% Marcaine with epinephrine was injected into the left labia majora and vagina along the area of the Bartholin's cyst and incision was then made in a vertical fashion along the vaginal introitus in a vertical fashion to the level of the cyst wall. The skin of the incision was then retracted laterally to expose the wall of the cyst. Small Metzenbaum scissors were then used to lyse the filmy adhesions between the wall of the cyst and overlying vaginal mucosa and subcutaneous tissue of the labia majora. An Allis clamp was placed on the wall of the cyst and the cyst was retracted to allow adequate dissection. The cyst was removed from the cavity and sent to pathology. Meticulous hemostasis was then carried out throughout the bed of the cyst cavity using both electrocoagulation and multiple interrupted [id number] sutures of 3-0 Vicryl. The cyst cavity was then closed using multiple interrupted sutures of 3-0 Vicryl to eliminate the space. The incision was then closed in a subcuticular fashion using 3-0 Vicryl suture. Hemostasis was well assured. Attention was then turned to the superior left labial cyst where again a solution of 0.25% Marcaine with epinephrine was injected into the left labia minora along the base of the cyst and incision was then made along the labia in a vertical fashion to the level of the cyst wall. The incision was retracted laterally to expose the wall of the cyst and small Metzenbaum scissors were used to lyse the filmy adhesions between the wall of the cyst and the underlying tissue. An Allis clamp was placed on the wall of the cyst and the cyst was retracted to allow adequate dissection. The cyst was then removed from the cavity and again sent for pathology. Meticulous hemostasis was then carried out throughout the bed of the cyst cavity using electrocoagulation. The cyst cavity was closed using multiple interrupted sutures of 3-0 Vicryl to eliminate the space. The incision was then closed using multiple interrupted sutures of 3-0 Vicryl. Hemostasis was well assured. All sponge, lap, needle, and instrument counts were correct times 2. The patient was awakened in stable condition and brought to the recovery room in stable condition. Job#: [id number]
== END | disposition home or self-care (01) ==
LOC: OR 05:20 → EDBD 07:30
PROVIDERS: ATTEND Obstetrics & Gynecology Obstetrics
DX: N75.0 Cyst of Bartholin's gland (principal); N90.7 Vulvar cyst; Z01.812 Encounter for preprocedural laboratory examination
CPT/HCPCS: 11420; 12041; 36415; 56740; 81025; 84702; 85025; 88304; J0131; J1100; J2001; J2175; J2250; J2405; J2704; J3490